=== PATIENT | female | born 1950 | race Caucasian/White ===

== ENCOUNTER 2024-07-09 11:59 | Inpatient (IN) | payer MEDICARE, BC, SELFPAY ==
[2024-07-09] VITALS (17 sets, daily range): BP systolic 94–143; BP diastolic 42–103; PULSE 86–92; BMI 21.5; BMI 21.9
[2024-07-09] MEDS: NSS 1000 IV (07:06)
--- NOTE | 2024-07-09 07:06 | EDRN ---
Dr. Cesar currently at the [facility] bedside
--- NOTE | 2024-07-09 07:27 | ED.CVA ---
History of Present Illness
General
Chief Complaint: CVA/TIA Symptoms
Source: patient and spouse
Exam Limitations: none
Time Seen by Provider: 07/09/24 07:01
Nursing documentation reviewed up to this point in time: agreed with
Onset of Stroke Symptoms
Onset of symptoms known: No
Date of onset of symptoms: 07/08/24
Time pt last seen normal is known: No
History of Present Illness
History of Present Illness:
The patient is a 74-year-old female with a past medical history of hyperlipidemia brought in by her for weakness, difficulty walking, and difficulty operating her toothbrush. Her reports that it has been going on for at least 1 day.
Patient was recently diagnosed with the flu. Her reports that she has been unable to stand up and walk. Additionally, when she tried to brush her teeth last night, she could not push the button to operate the toothbrush. The patient
reports that she feels as though the weakness is worse on the right side of her body. She reports this is never happened before. She denies vision changes, severe headache, and difficulty with her speech.
Review of Systems
Review of Systems
Allergies reviewed?: Yes
All Other Systems: ROS reviewed and negative except as documented in HPI and ROS
Constitutional: Reports fever, fatigue and chills
EENT: Reports no symptoms
Respiratory: Reports no symptoms
Cardiac: Reports no symptoms
ABD/GI: Reports anorexia
: Reports no symptoms
Musculoskeletal: Reports no symptoms
Skin: Reports no symptoms
Neurological: Reports weakness
Endocrine: Reports no symptoms
Hematologic/Lymphatic: Reports no symptoms
Psychiatric: Reports no symptoms
Phy Exam
Physical Exam
Physical Exam:
Physical Exam
General: Patient appears tired but nontoxic. Is conversational.
Neck: supple. no meningeal signs. Dry mucous membrane
Heart: s1/s2 regular rate and rhythm, no murmur. equal radial pulses.
Lungs: no acute respiratory distress. clear bilaterally
Abdomen: normal bowel sounds. not tender. no CVAT
Neuro: alert and orientedx3. Face symmetric. Extraocular muscles intact. Normal [id number]. Speech sounds clear and normal. Mild drifting of right upper extremity. Drifting of right lower extremity. 5 out of 5
strength of left upper and left lower extremity, equal sensation bilaterally
Skin: no rash
Psychiatric: well kept. interactive and cooperative
Extremities: no edema. no calf tenderness. negative homans. good distal pulses
Course
Orders/Labs/Results
Orders:
Orders
07/09/24 07:06
0.9% Sodium Chloride 1000 ml [Nss] 1,000 ml IV BOLUS
07/09/24 07:10
EKG [Electrocardiogram (*1)] Urgent
Reason for Study: Fatigue / Weakness
EKG- Treatment ONCE
07/09/24 07:19
CT Head & Neck Angio W/wo IV Urgent
Comment:
Reason For Exam: R arm and R leg weakness
07/09/24 07:27
Complete Blood Count/With Diff Urgent
Comprehensive Metabolic Panel Urgent
07/09/24 08:10
CR Chest - 2 Views Urgent
Comment:
Reason For Exam: cough
07/09/24 08:58
Influenza A+B Rapid Molecular Urgent
ALONDRA Source: Nasal Swab
Specimen Description:
07/09/24 09:12
LevoFLOXacin 750 MG/150 ML [Levaquin] 750 mg in 150 ml IV NOW
07/09/24 11:19
COVID-19 Antigen Routine
Source: Nasal Swab
07/09/24 11:42
Admit/Transfer Patient As Directed
Co-Sign Provider:
Level of Care: Inpatient admission
Assign to:: Medical/Surgical
Physician / Group: Margo
Diagnosis: Pneumonia
Reason for Hospitalization: Antibiotics
Expected length of stay greater than two midnights?: Yes
ELOS- Estimated Length of Stay in days: 2
I certify the patient meets the requirements for IP care: Yes
07/09/24 11:43
PRN Pain Medication Management As Directed
May give lesser potent ordered pain med per pt: Yes
preference::
Protocol:: Medication orders for pain may be administered in a
manner that supports deferring to patient preference
when the pt is:
- Requesting an ordered lesser potent pain medication.
Least to most potent pain medications are defined
as: acetaminophen < NSAID < tramadol < opioids
(morphine, oxycodone, hydromorphone).
- Requesting a lesser dose of the same medication IF
ORDERED.
- Requesting a less intrusive route of administration
if both routes are prescribed by the provider (PO <
IV).
07/09/24 11:44
Code Status As Directed
Resuscitation Status: Full Code
07/09/24 11:45
Blood Culture Q30M
ALONDRA Source: Blood/Venous
Specimen Description:
07/09/24 12:15
Blood Culture Q30M
ALONDRA Source: Blood/Venous
Specimen Description:
Abnormal Lab Results
07/09/24
07:27
WBC 14.5 H 10^3/uL
(4.8-10.8)
MCHC 32.7 L g/dL
(33.0-37.0)
Plt Count 122 L 10^3/uL
(130-400)
MPV 11.4 H fL
(7.4-10.4)
Abs Immat Gran (auto) 0.1 H 10^3/uL
(0-0.05)
Absolute Neuts (auto) 11.1 H 10^3/uL
(1.4-6.5)
Absolute Monos (auto) 1.4 H 10^3/uL
(0.1-0.6)
Neutrophils % 76.5 H %
(42.2-75.2)
Lymphocytes % 13.3 L %
(20.5-51.1)
Carbon Dioxide 21 L mmol/L
(22-30)
BUN 21 H mg/dl
(7-17)
Glucose 122 H mg/dl
(70-99)
AST 42 H U/L
(14-36)
ALT 37 H U/L
(0-35)
07/09/24 07:27
07/09/24 07:27
Vital Signs
Initial and Last Documented VS:
Initial Vital Signs
Temp Pulse Resp BP Pulse Ox
99.1 F 98 20 102/52 95
07/09/24 06:47 07/09/24 06:47 07/09/24 06:47 07/09/24 06:47 07/09/24 06:47
Last Documented Vital Signs
Temp Pulse Resp BP Pulse Ox
98.9 F 86 21 118/70 98
07/09/24 07:07 07/09/24 10:07 07/09/24 10:07 07/09/24 10:07 07/09/24 10:07
MDM/Problems Addressed
Differential Diagnosis Includes:
Acute CVA, hyponatremia, severe dehydration
MDM/Problems Addressed:
Patient presents with acute generalized weakness as well as right focal weakness
Chronic conditions affecting care:
Hyperlipidemia
*Radiology
Radiology exam reviewed: preliminary read by ED provider (Chest x-ray reviewed by me. Right heart border obstructed with likely infiltrate. Possible infiltrate left lung area as well) and radiology read reviewed
*Pulse Oximetry
Patient hypoxic: no
*EKG
Interpreted by ED Provider?: Yes
Interpretation: normal
Comparison EKG: no comparison EKG present
Rate: normal
Rhythm: sinus
[place]: normal axis
Interval: normal interval
QRS Pattern: normal QRS
Ischemia: no ischemia
*Supervising Floorperson Interpretation
Rate: normal
Interpretation: normal
Rhythm: sinus
*Critical Care Note
Total Time (30-74mins, 75-104mins- exclusive of procedures): Not Applicable
Data Reviewed
Source: patient and spouse
Patient Management
Social determinants of health affecting care: Living situation and Strong social support
Discussion with other providers: Hospitalist
Escalation/DeEscalation of care consider admission/obs:
Patient has a bilateral pneumonia seen on her chest x-ray and clinically appears dehydrated. This is likely the leading contribution to her weakness. On exam, she does have mild drifting of her extremities on the right side, however, her CTA shows
no sign of obstruction of the arterial flow in the neck and brain
ED Attending Note
-
Portions of this chart may have been created with voice recognition software.� Occasional wrong word or��sound alike� substitutions may have occurred due to the inherent limitations of voice recognition software.
Discharge Plan
Departure
Patient Disposition: Admit
Date of Disposition: 07/09/24
Time of Disposition: 10:07
Admit to: Telemetry
Presentation/result/management discussed w/ accepting MD/DO: Hospitalist
Condition: Good
Covid-19: Not Applicable
Discharge Problem:
Bilateral pneumonia
Prescriptions:
No Action
cyclobenzaprine 10 mg Tablet
10 mg PO HS
famotidine 40 mg Tablet
40 mg PO DAILY
alendronate 70 mg Tablet
70 mg PO AVILA
zolmitriptan 5 mg Tablet
5 mg PO DAILYPRN PRN (Reason: breakthrough migraine)
esomeprazole magnesium 40 mg Capsule,Delayed Release(Dr/Ec)
40 mg PO DAILY
topiramate 100 mg Tablet
100 mg PO BID
rosuvastatin 10 mg Tablet
10 mg PO DAILY
cranberry extract 500 mg Tablet
500 mg PO HS
oseltamivir [Tamiflu] 75 mg Capsule
75 mg PO BID
Delsym 30 mg/5 mL Liquid
15 mg PO DAILYPRN PRN (Reason: COUGH)
ibuprofen-acetaminophen [Advil Dual Action] 125-250 mg Tablet
1 tab PO BIDPRN PRN (Reason: MILD PAIN)
Referrals:
Yovani Woody DO [Family Provider] -
Interventions
Interventions:
*Risk Screen - Suicide Last Done: 07/09/24 06:47
*General Assessment Last Done: 07/09/24 07:07
*Neglect/Abuse Screening Last Done: 07/09/24 06:47
*ED- Fall Risk Assessment Last Done: 07/09/24 07:07
*ED COVID-19 Vaccine History Last Done: 07/09/24 07:07
ED- Pulmonary Assessment Last Done: 07/09/24 07:07
ED- Neurological Assessment Last Done: 07/09/24 07:07
ED- Cardiac Assessment Last Done: 07/09/24 07:07
ED Swallowing Screen Last Done: 07/09/24 07:07
Discharge Date and Time
Print Language: TRISTANIAN
[2024-07-09 07:46] LABS: % Basophils 0.3 % (0-2); % Eosinophils 0.1 % (0-6); % Immature Granulocytes 0.5 % (0-0.5); % Lymphocytes 13.3 % (20.5-51.1); % Monocytes 9.3 % (1.7-9.3); % Neutrophils 76.5 % (42.2-75.2); Absolute Basophils 0.1 10^3/uL (0-0.2); Absolute Immature Granulocytes 0.1 10^3/uL (0-0.05); Absolute Lymphocytes 1.9 10^3/uL (1.2-3.4); Absolute Monocytes 1.4 10^3/uL (0.1-0.6); Absolute Neutrophils 11.1 10^3/uL (1.4-6.5); Hemoglobin 14.4 g/dL (12.0-16.0); Mean Corp Hgb Conc. 32.7 g/dL (33.0-37.0); Mean Corpuscular Hgb 30.5 pg (27.0-31.0); Mean Corpuscular Volume 93.2 fL (81.0-99.0); Mean Platelet Volume 11.4 fL (7.4-10.4); Nucleated Red Blood Cells % 0 %; Platelet Count 122 10^3/uL (130-400); Red Blood Cell Count 4.72 10^6/uL (4.20-5.40); Red Cell Dist. Width 12.3 % (11.5-14.5); White Blood Cell Count 14.5 10^3/uL (4.8-10.8)
[2024-07-09 07:47] LABS: ALT (SGPT) 37 U/L (0-35); AST (SGOT) 42 U/L (14-36); Albumin 4.1 g/dl (3.5-5.0); Alkaline Phosphatase 47 U/L (38-126); Blood Urea Nitrogen 21 mg/dl (7-17); Calcium 9.2 mg/dl (8.4-10.2); Carbon Dioxide 21 mmol/L (22-30); Chloride 105 mmol/L (98-107); Estimated Creatinine Clearance 42 ml/min; Glucose 122 mg/dl (70-99); Potassium 3.6 mmol/L (3.5-5.1); Sodium 137 mmol/L (135-145); Total Bilirubin 0.7 mg/dl (0.2-1.3); Total Protein 6.6 g/dl (6.3-8.2); eGFR 58.75
--- NOTE | 2024-07-09 07:49 | EDRN ---
the pts approached this RN at the nurses station and stated that his (the patient) was thirsty and wanted something to drink and per Dr. Cesar the pt is not to have water at this moment, the pts and the pt understood this,
will continue to monitor the pt closely
[2024-07-09] MEDS: LEVAQUIN 150 IV (09:30)
--- NOTE | 2024-07-09 11:29 | EDRN ---
hospitalist currently at the pts bedside
--- NOTE | 2024-07-09 11:47 | HPS.HSE ---
Family Physician
-
Family Physician: Yovani Woody
Chief Complaint
-
Weakness, cough
History of Present Illness
74-year-old female here complaining of weakness and cough. Symptoms started about 6 weeks ago with a mild cough that worsened 5 days ago.
Started developing generalized weakness 5 days ago.
Did not particularly notice unilateral weakness.
States her has had a cough and was tested and ruled out for influenza.
She was empirically prescribed Tamiflu and only took it for 2 days but discontinued due to side effects.
Has had low-grade fevers at home for the past couple days, 100.8 �F. Denies chills. Denies shortness of breath or dyspnea on exertion.
Medical History
Past Medical History
Past Medical History: Reports Other
Additional Past Medical History:
Hyperlipidemia
Osteoporosis
Past Surgical History: Reports Cholecystectomy and Orthopedic
Social History
Tobacco: Non-smoker
Alcohol: Occasional
Drug: None
Personal:
Living: With Family
Family History
Family History: Not pertinent
Allergies / Home Medications
Allergies reflects when Allergies were last updated in [employer].
Home Medications with original date entered in [employer]
Allergy/Medication List:
Allergies
Allergy/AdvReac Type Severity Reaction Status Date / Time
Sulfa (Sulfonamide Allergy Unknown Verified 07/09/24 06:54
Antibiotics)
Home Medications
alendronate 70 mg tablet 70 mg PO AVILA 07/09/24
cranberry extract 500 mg tablet 500 mg PO HS 07/09/24
cyclobenzaprine 10 mg tablet 10 mg PO HS 07/09/24
dextromethorphan HBr 30 mg/5 mL oral liquid 15 mg PO DAILYPRN PRN COUGH 07/09/24
esomeprazole magnesium 40 mg capsule,delayed release 40 mg PO DAILY 07/09/24
famotidine 40 mg tablet 40 mg PO DAILY 07/09/24
ibuprofen 125 mg-acetaminophen 250 mg tablet (Advil Dual Action) 1 tab PO BIDPRN PRN MILD PAIN 07/09/24
oseltamivir 75 mg capsule (Tamiflu) 75 mg PO BID 07/09/24
rosuvastatin 10 mg tablet 10 mg PO DAILY 07/09/24
topiramate 100 mg tablet 100 mg PO BID 07/09/24
zolmitriptan 5 mg tablet 5 mg PO DAILYPRN PRN breakthrough migraine 07/09/24
Review of Systems
-
History Source: Patient
A 12 point ROS was completed and negative except as noted: Yes
Physical Exam
Vital Signs
Vital Signs
Temp Pulse Resp BP Pulse Ox
98.9 F 86 21 118/70 98
07/09/24 07:07 07/09/24 10:07 07/09/24 10:07 07/09/24 10:07 07/09/24 10:07
Physical Exam
General: Well Developed, Well Nourished, No Apparent Distress and Comfortable
HEENT: NormoCephalic, Anicteric and Moist mucous membranes
Respiratory: Clear
Cardiac: S1/S2 and Regular Rhythm
Breast: Deferred by me
GI: Soft, Non Tender and Non Distended
Genito-urinary: Deferred by me
Musculoskeletal: No Clubbing, No Cyanosis and No Edema
Skin: Warm and Dry
Neuro: AO x 3, No Motor Deficits, Nonfocal/grossly intact and No Sensory Deficits
Hematologic/Lymphatic: No Lymphadenopathy
Psych: Calm
Laboratory Results
-
07/09/24 07:27
07/09/24 07:27
Laboratory Results
Total Bilirubin 0.7 mg/dl (0.2-1.3) 07/09/24 07:27
AST 42 U/L (14-36) H 07/09/24 07:27
ALT 37 U/L (0-35) H 07/09/24 07:27
Alkaline Phosphatase 47 U/L (38-126) 07/09/24 07:27
Impression/Plan
-
Sepsis due to pneumonia -admit to [facility]. Hemodynamically improved with IV fluids. Continue empiric antibiotics. Check cultures. Check urinary antigens.
Check COVID antigen. Influenza negative.
Chest x-ray read as possible mild bilateral pneumonia. I looked at the films myself, I see no obvious infiltrates. She is not hypoxic.
Generalized weakness -suspect due to sepsis and pneumonia. Neurologic exam nonfocal. CTA head and neck normal. Neurologic exam nonfocal. Doubt stroke.
Elevated transaminases -Suspect due to sepsis and pneumonia, monitor for now.
Hyperlipidemia -on Crestor. Hold in the setting of elevated transaminases.
Full code
[2024-07-09] MEDS: LR 500 IV (12:09)
[2024-07-09 12:46] LABS: COVID-19 Antigen Negative (Negative)
--- NOTE | 2024-07-09 13:14 | CM ---
MEt patient and her PCP in ER room. Patient reports she lives with spouse in 3 level home but all living on data entry analyst. She has 3 steps to enter home. She is independent in home and community. She does not use any DME.
SHe has not history of VNA or SNF.
PCP Dr. Yovani Woody
Pharmacy: [facility]
Patient admitted with pneumonia.
PLan: home no needs.
--- NOTE | 2024-07-09 13:24 | EDRN ---
this RN called the receiving unit and notified them that paper report was going to be tubed up
[2024-07-09] MEDS: MUCINEX 600 MG PO (15:22)
[2024-07-09] MEDS: LR 1000 IV (15:23)
[2024-07-09] MEDS: TYLENOL 650 MG PO (16:05)
[2024-07-09] MEDS: LOVENOX 40 MG SC (17:19)
[2024-07-09] MEDS: TOPAMAX 100 MG PO (20:49)
[2024-07-09] MEDS: FLEXERIL 10 MG PO (20:49)
--- NOTE | 2024-07-10 06:23 | PTCARENOTE ---
AAO x 4. VSS. IV fluids completed. Patient adequately eating and drinking. Sputum culture still pending yet, patient unable to produce sputum. Urine for legionella sent--results pending. OOB ad dusty. All patient needs met, at this time. Call tang and
personal belongings within reach.
[2024-07-10 07:45] VITALS: BP 118/66; BP 120/65; BP 97/73; PULSE 82; PULSE 89; PULSE 92
[2024-07-10 08:04] LABS: % Basophils 0.1 % (0-2); % Eosinophils 0.1 % (0-6); % Immature Granulocytes 0.1 % (0-0.5); % Lymphocytes 15.3 % (20.5-51.1); % Monocytes 9.7 % (1.7-9.3); % Neutrophils 74.7 % (42.2-75.2); Absolute Lymphocytes 1.3 10^3/uL (1.2-3.4); Absolute Monocytes 0.8 10^3/uL (0.1-0.6); Absolute Neutrophils 6.2 10^3/uL (1.4-6.5); Hematocrit 39.5 % (37.0-47.0); Hemoglobin 13.4 g/dL (12.0-16.0); Mean Corp Hgb Conc. 33.9 g/dL (33.0-37.0); Mean Corpuscular Hgb 30.5 pg (27.0-31.0); Nucleated Red Blood Cells % 0 %; Platelet Count 104 10^3/uL (130-400); Red Blood Cell Count 4.39 10^6/uL (4.20-5.40); Red Cell Dist. Width 12.4 % (11.5-14.5); White Blood Cell Count 8.3 10^3/uL (4.8-10.8)
[2024-07-10 08:54] VITALS: BP 127/67
[2024-07-10 08:57] LABS: ALT (SGPT) 74 U/L (0-35); AST (SGOT) 89 U/L (14-36); Albumin 3.4 g/dl (3.5-5.0); Alkaline Phosphatase 49 U/L (38-126); Blood Urea Nitrogen 15 mg/dl (7-17); Calcium 8.9 mg/dl (8.4-10.2); Carbon Dioxide 18 mmol/L (22-30); Chloride 111 mmol/L (98-107); Estimated Creatinine Clearance 70 ml/min; Glucose 86 mg/dl (70-99); Potassium 3.4 mmol/L (3.5-5.1); Sodium 139 mmol/L (135-145); Total Bilirubin 0.6 mg/dl (0.2-1.3); Total Protein 5.7 g/dl (6.3-8.2); eGFR > 60.00
[2024-07-10] MEDS: TOPAMAX 100 MG PO (09:13)
[2024-07-10] MEDS: PEPCID 20 MG PO (09:13)
[2024-07-10] MEDS: MUCINEX 600 MG PO (09:14)
[2024-07-10 09:32] VITALS: BP 127/67
--- NOTE | 2024-07-10 09:36 | W.PN.HOSP.TC ---
Addendum entered and electronically signed by Abner Aragon DO 07/10/24 15:33:
Sepsis due to community-acquired pneumonia
Addendum entered and electronically signed by Abner Aragon DO 07/10/24 14:41:
Patient requesting discharge, discussed with nurse.
at the bedside.
Okay to discharge on oral antibiotics.
CMP next week with primary care doctor. Follow-up with PCP in the office next week.
Discussed with patient to discontinue further antibiotics in the event of severe watery diarrhea and further discuss with her primary care doctor.
Original Note:
Today's Communication/Plan
-
Continue antibiotics
Oral potassium
Check magnesium
Possible discharge later if stable
Assessment / Plan
Assessment / Plan
Gen-AAOx3, NAD
HEENT-NC, AT, anicteric, clear oral mm
Neck-supple
CV-reg, no M, +S1/S2
Lungs-clear B/L
Abd-soft, NT, ND
Ext-no edema
Musculoskeletal-no cyanosis, clubbing
Skin-warm and dry
Neuro-grossly non-focal
Psych-calm, cooperative
Acute TME -present on admission, due to sepsis and pneumonia. Resolved.
Sepsis due to pneumonia -admit to [facility]. Hemodynamically improved with IV fluids. Continue empiric antibiotics. Urinary antigens negative. COVID, influenza negative.
Chest x-ray read as possible mild bilateral pneumonia. I looked at the films myself, I see no obvious infiltrates. She is not hypoxic.
Leukocytosis resolved. Low-grade fever noted.
Generalized weakness -suspect due to sepsis and pneumonia. Neurologic exam nonfocal. CTA head and neck normal. Neurologic exam nonfocal. Doubt stroke. Did well with physical therapy.
Weakness improved.
Elevated transaminases -Suspect due to sepsis and pneumonia, monitor for now. Check GGT.
Hypokalemia -will replete. Check magnesium.
Hyperlipidemia -on Crestor. Hold in the setting of elevated transaminases.
Full code
Dispo - patient requesting discharge today. She feels much better. at the bedside. Anticipate discharge this afternoon if she remains stable. Follow-up with PCP next week.
Anticipated Discharge: Today
Subjective/Interval History
-
Date of Service: July 10, 2024
Patient seen and examined. Feels much better. No complaints.
Objective Data
-
Labs:
Laboratory Results
07/10/24
07:12
WBC 8.3
Hgb 13.4
Hct 39.5
Plt Count 104 L
Sodium 139
Potassium 3.4 L
Chloride 111 H
Carbon Dioxide 18 L
BUN 15
Creatinine 0.6
Glucose 86
Calcium 8.9
Total Bilirubin 0.6
AST 89 H
ALT 74 H
Alkaline Phosphatase 49
Vital Signs:
Vital Signs
Temp Pulse Resp BP Pulse Ox
100.0 F 82 18 120/65 97
07/10/24 07:45 07/10/24 07:45 07/10/24 07:45 07/10/24 07:45 07/10/24 07:45
I&O
07/09/24 07/10/24 07/11/24
06:59 06:59 06:59
Intake Total 220 / 220
Balance 220 / 220
Review of Systems
-
History Source: Patient
All other systems: Reviewed and negative
[2024-07-10 10:04] LABS: Magnesium 2.3 mg/dl (1.6-2.3)
[2024-07-10] MEDS: KCL 40 MEQ PO (10:07)
[2024-07-10] MEDS: ZITHROMAX 500 MG PO (10:08)
[2024-07-10] MEDS: STERILE WATER FOR INJECTION 10 ML IV (10:09)
[2024-07-10] MEDS: ROCEPHIN 1000 MG IV (10:09)
[2024-07-10 11:15] LABS: GGTP 30 U/L (12-43)
--- NOTE | 2024-07-10 13:21 | CM ---
Chart reviewed and patient is currently on room air, and po ABX.
Plan; Home today.
--- NOTE | 2024-07-10 14:40 | W.DS.TRANS ---
DC Summary - Service Crew Leader
-
Discharge Instructions:
Discharge Diagnosis/Procedures Sepsis, pneumonia, elevated liver enzymes
Diet Regular
Activity As tolerated
Driving Restrictions As prior to admission
Bathing Restrictions None
Blood Work CMP next week with your primary care doctor
Instructions:
Stand-Alone Forms:
Changes to Home Medications: No
Discharge Medications:
DC Medications w/original date entered in [employer]
alendronate 70 mg tablet 70 mg PO AVILA Osteoporosis 07/09/24
cranberry extract 500 mg tablet 500 mg PO HS Supplement 07/09/24
cyclobenzaprine 10 mg tablet 10 mg PO HS Muscle Spasms 07/09/24
dextromethorphan HBr 30 mg/5 mL oral liquid 15 mg PO DAILYPRN PRN COUGH 07/09/24
esomeprazole magnesium 40 mg capsule,delayed release 40 mg PO DAILY Gastrointestinal Issue 07/09/24
famotidine 40 mg tablet 40 mg PO DAILY Gastrointestinal Issue 07/09/24
ibuprofen 125 mg-acetaminophen 250 mg tablet (Advil Dual Action) 1 tab PO BIDPRN PRN MILD PAIN 07/09/24
rosuvastatin 10 mg tablet 10 mg PO DAILY High Cholesterol 07/09/24
topiramate 100 mg tablet 100 mg PO BID Mental Health/Anxiety 07/09/24
zolmitriptan 5 mg tablet 5 mg PO DAILYPRN PRN breakthrough migraine 07/09/24
amoxicillin 875 mg-potassium clavulanate 125 mg tablet 1 tab PO BID #10 tabs 07/10/24
guaifenesin 600 mg tablet, extended release 12 hr 600 mg PO Q12 #0 tabs 07/10/24
Home Medication Changes
Pending Results: No
[2024-07-10 15:03] VITALS: BP 146/77
== END 2024-07-10 15:26 | disposition home or self-care (01) | DRG 871 ==
LOC: 4 WEST ACU 11:59
PROVIDERS: ADMITTING PHYSICIAN Hospitalist; EMERGENCY PHYSICIAN Emergency Medicine; FAMILY PHYSICIAN Family Medicine
DX: A41.9 Sepsis, unspecified organism (principal); J18.9 Pneumonia, unspecified organism; E87.6 Hypokalemia; E78.5 Hyperlipidemia, unspecified; M81.0 Age-related osteoporosis without current pathological fracture; Z90.49 Acquired absence of other specified parts of digestive tract; Z88.2 Allergy status to sulfonamides; Z11.52 Encounter for screening for COVID-19
CPT/HCPCS: 70496; 70498; 71046; 80053; 82977; 83735; 85025; 87040; 87449; 87502; 87811; 87899; 93005; 96361; 96365; 97162; 97166; 99285; Q9967